=== PATIENT | male | born 1960 | race Caucasian/White ===

== ENCOUNTER 2017-01-05 14:27 | Emergency (ER) | payer OTHER ==
[~2017-01-05] VITALS: Ht 185.4 cm; Wt 97.0 kg
[~2017-01-05 14:27] MED LIST: ALBU8I INH; AMIT10 PO; BUSP5 PO; CIPR500T4 PO; GABA600T PO; HYDR-3533 PO; HYDR12.56 PO; LISI-363 PO; METR-1 PO; ZOFR4TAB3 SL
[2017-01-05 14:39] VITALS: BP 145/105; PULSE 87; RESP 15; TEMP 98.5; O2SAT 98
[2017-01-05] MEDS ORDERED: HYDR12.57 PO (15:22)
[2017-01-05] MEDS ORDERED: LISI-515 PO (15:22)
[2017-01-05] MEDS ORDERED: VITA100064 PO (15:33)
[2017-01-05] MEDS ORDERED: ASPI81CH CHEW (15:33)
--- NOTE | 2017-01-05 15:54 | PD ---
HPI Chief Complaint: GI Complaint Time Seen by Provider: 15:50 Travel History International Travel<30 days: No Contact w/Intl Traveler<30days: No Traveled to known affect area: No History of Present Illness HPI 56-year-old male with history of hypertension, fibromyalgia, chronic neck and back pains for which he states he takes cannabis oil, presents to the ER today because he states that he is having constipation for the last month. He has had nausea but no vomiting, or abdominal pain. He states that he has had difficulty making hard stools and today tried to make a bowel movement but feels like there is a ball stuck in his bottom. He denies any fevers or any other issues. He states that 2 days ago when he was making a bowel movement he may have one something on the anal area, has pain in that area. He rates the pain a 4 out of 10 which worsens when he tries to make a bowel movement. Modifying Factors: None Associated Signs & Symptoms: Constipation Risk Factors: None PFSH Past Medical History Cardiovascular Problems: Yes (SMALL VESSEL DISEASE ) Diminished Hearing: No Fibromyalgia: Yes Hypertension: Yes Immunizations Current: Yes Influenza Vaccination: No ?: Not Past Surgical History Abdominal Surgery: Yes (HERNIA REPAIR) Social History Alcohol Use: No (quit 8 yrs ago) Tobacco Use: No (never) Substance Use: No Allergies-Medications (Allergen,Severity, Reaction): Coded Allergies: No Known Allergies (Unverified , 01/05/17) Reported Meds & Prescriptions Reported Meds & Active Scripts Active Fleet Enema Rectal (Sodium Phosphates Rectal) 7-19 Gm/118 Ml Enem 118 Ml RECTAL DAILY PRN Golytely 236 gm (Polyethylene Glycol/Electrolytes) 4,000 Ml Soln 2,000 Ml PO ONCE Reported Aspirin 81 Mg Chew 81 Mg CHEW DAILY Vitamin D (Cholecalciferol) 1,000 Unit Tab 1,000 Units PO DAILY Hydrochlorothiazide 12.5 Mg Cap 12.5 Mg PO DAILY Lisinopril 20 Mg Tab 20 Mg PO DAILY Review of Systems Except as stated in HPI: all other systems reviewed are Neg Physical Exam Narrative GENERAL: Middle age white male who is well-appearing, well-developed, not acute distress, awake and oriented 3. SKIN: Warm and dry. HEAD: Atraumatic. Normocephalic. EYES: Pupils equal and round. No scleral icterus. No injection or drainage. ENT: No nasal bleeding or discharge. Mucous membranes pink and moist. NECK: Trachea midline. No JVD. CARDIOVASCULAR: Regular rate and rhythm. No murmur appreciated. RESPIRATORY: No accessory muscle use. Clear to auscultation. Breath sounds equal bilaterally. GASTROINTESTINAL: Abdomen soft, non-tender, nondistended. Hepatic and splenic margins not palpable. RECTAL EXAM: No masses, but a large stool bolus was noted in the rectum with area tenderness to the 6 o'clock position on the anus, small anal tear, with small amount blood, stool is brown. MUSCULOSKELETAL: No obvious deformities. No clubbing. No cyanosis. No edema. NEUROLOGICAL: Awake and alert. No obvious cranial nerve deficits. Motor grossly within normal limits. Normal speech. PSYCHIATRIC: Appropriate mood and affect; insight and judgment normal. Data Data Last Documented VS Vital Signs Date Time Temp Pulse Resp B/P Pulse Ox O2 Delivery O2 Flow Rate FiO2 01/05/17 14:39 98.5 87 15 145/105 98 Orders Abdomen, Flat & Upright (01/05/17 15:09) MDM Medical Decision Making Medical Screen Exam Complete: Yes Emergency Medical Condition: Yes Medical Record Reviewed: Yes Differential Diagnosis Constipation versus obstruction versus mass Narrative Course Manual digital decompression was done in the ER. Exam and x-ray did not show any signs of acute obstruction. Patient last had a bowel movement 2 days ago. At this point, my plan would be to give him constipation treatment with GoLYTELY and Fleet's enema. Follow-up with primary care physician. Return for any worsening in symptoms as necessary. Sitz baths. Return for any worsening in symptoms as necessary. The plan has been discussed with him and he states understanding. Procedures Procedure Narrative Rectal decompression: Patient is placed in a supine position, knees bent, and digital decompression was done with surgical lube, stool bolus broken up and removed, patient states he is feeling improved. Patient tolerated procedure well. Diagnosis Primary Impression: CONSTIPATION, UNSPECIFIED Additional Impressions: Impacted stool in rectum Tear of anal skin Med/Other Pt SpecificInfo: Prescription(s) given Scripts Sodium Phosphates Rectal (Fleet Enema Rectal)7-19 Gm/118 Ml [id number] Ml RECTAL DAILY PRN (CONSTIPATION) #1 BOTTLE Ref 0 Prov:Twan Ly MD 01/05/17 Peg-Electrolytes (Golytely 236 gm)4,000 Ml Soln2,000 Ml PO ONCE #1 CONTAINER Ref 0 Prov:Twan Ly MD 01/05/17 Disposition: 01 DISCHARGE HOME Condition: Stable Twan Ly MD Jan 05, 2017 15:54
[2017-01-05] MEDS ORDERED: COLY4000S PO (17:12)
[2017-01-05] MEDS ORDERED: FLEEENE3 RECTAL (17:12)
--- NOTE | 2017-01-05 17:16 | RADHPO ---
EXAM DATE/TIME: 01/05/2017 15:56 [facility] COMPARISON: No previous studies available for comparison. INDICATIONS : Abdomen pain, constipation MEDICAL HISTORY : None. SURGICAL HISTORY : None. ENCOUNTER: Initial ACUITY: 1 day PAIN SCORE: 6/10 LOCATION: Bilateral abdomen FINDINGS: Mild diffuse distention of small and large bowel. Moderate stool seen in the rectum and sigmoid colon . No perceptible abrupt caliber changes. No organomegaly or evidence of free air. CONCLUSION: Features most typical of a mild, generalized ileus. Moderate stool in the distal colon. Jaylan Macedo MD on January 05, 2017 at 17:14 Board Certified Radiologist. This report was verified electronically.
== END 2017-01-05 17:36 | disposition home or self-care (01) ==
LOC: PHED 14:27
DX: K59.00 Constipation, unspecified (principal); I10 Essential (primary) hypertension; M79.7 Fibromyalgia
CPT/HCPCS: 74020; 99283

== ENCOUNTER 2017-11-13 19:09 | Observation (INO) | payer OTHER ==
[~2017-11-13] VITALS: Ht 185.4 cm; Wt 93.2 kg
[~2017-11-13 19:09] MED LIST changes: -ALBU8I INH; -AMIT10 PO; +ASPI-516 CHEW; -BUSP5 PO; -CIPR500T4 PO; +COLY4000S PO; +FLEEENE3 RECTAL; -GABA600T PO; -HYDR-3533 PO; -HYDR12.56 PO; +HYDR12.57 PO; -LISI-363 PO; +LISI-515 PO; -METR-1 PO; +VITA100064 PO; -ZOFR4TAB3 SL
[2017-11-13 19:26] VITALS: BP 181/112; PULSE 102; RESP 16; TEMP 98; O2SAT 98
[2017-11-13 20:12] VITALS: BP 150/100; PULSE 82; RESP 18; O2SAT 97
[2017-11-13] MEDS ORDERED: SODIUM CHLORIDE 0.9% FLUSH 10 ML FLUSH IVF PRN (20:45)
[2017-11-13 21:00] VITALS: BP 184/107; PULSE 89; RESP 18; O2SAT 96
--- NOTE | 2017-11-13 21:09 | RADRPT ---
EXAM DATE/TIME: 11/13/2017 20:45 [facility] COMPARISON: CHEST SINGLE AP, May 01, 2016, 0:47. INDICATIONS : Chest pain MEDICAL HISTORY : Hypertension. Cardiac disorders, fibromyalgia SURGICAL HISTORY : Abdomen surgery ENCOUNTER: Initial ACUITY: 2 months PAIN SCORE: 2/10 LOCATION: Bilateral chest FINDINGS: A single view of the chest demonstrates the lungs to be symmetrically aerated without evidence of mas s, infiltrate or effusion. The cardiomediastinal contours are unremarkable. Osseous structures are intact. CONCLUSION: No acute disease. Ernst Dubose Jr., MD on November 13, 2017 at 21:07 Board Certified Radiologist. This report was verified electronically.
--- NOTE | 2017-11-13 21:35 | PD ---
HPI Chief Complaint: Anxiety Time Seen by Provider: 20:28 Travel History International Travel<30 days: No Contact w/Intl Traveler<30days: No Traveled to known affect area: No History of Present Illness HPI Patient is a 56-year-old male presenting to emergency for evaluation of chest pain and anxiety. Patient states that for the last week he is experienced anxiety which is worse at night. He went to the [facility] today to have this and his asthma evaluated, he was prescribed Xanax, prednisone. Patient has medications filled, he took the steroids this evening. He has not taken any Xanax yet. Approximately 30 minutes prior to arrival he experienced a pinching sensation in the base of his neck, he states it felt as if it was swelling. He then began to feel shaky, sweaty, nauseated and developed a left anterior chest wall pain that radiated to his left arm. He reports that the pain is a 5-6 out of 10 , it is not alleviated by anything, it started suddenly and it has no aggravating factors. Patient states that for the last week he has wheezing at night, he has been using Himalayan Sea salts and will occasionally use has albuterol inhaler. Patient denies any fever, chills, headache, abdominal pain, vomiting, nasal congestion. He states that his friend came over at 3 PM this afternoon and gave him a piece of edible marijuana to help with his anxiety. He stated that he smelled it and he did not believe it was laced with anything else. He denies any other illicit drug use, tobacco use or alcohol use. He denies any psychiatric history. He further denies any recent life stressors to be causing him anxiety. [facility] Past Medical History Cardiovascular Problems: Yes (SMALL VESSEL DISEASE ) Fibromyalgia: Yes Hypertension: Yes Neurologic: Yes (neuropathy) Immunizations Current: Yes Past Surgical History Abdominal Surgery: Yes (HERNIA REPAIR) Social History Alcohol Use: No (quit 8 yrs ago) Tobacco Use: No (never) Substance Use: No Allergies-Medications (Allergen,Severity, Reaction): Coded Allergies: No Known Allergies (Unverified Adverse Reaction, Unknown, 11/13/17) Reported Meds & Prescriptions Reported Meds & Active Scripts Active Reported Aspirin 81 Mg Chew 81 Mg CHEW DAILY Vitamin D3 (Cholecalciferol) 1,000 Unit Tab 1,000 Units PO DAILY Hydrochlorothiazide 12.5 Mg Cap 12.5 Mg PO DAILY Lisinopril 20 Mg Tab 20 Mg PO DAILY Review of Systems Except as stated in HPI: all other systems reviewed are Neg General / Constitutional: No: Fever, Chills Eyes: No: Blurred Vision HENT: No: Headaches, Lightheadedness, Sore Throat, Congestion Cardiovascular: Positive: Chest Pain or Discomfort, Tachycardia, Diaphoresis Respiratory: Positive: Wheezing, No: Cough, Shortness of Breath, Pleuritic Pain Gastrointestinal: Positive: Nausea, No: Vomiting, Abdominal Pain Neurologic: Positive: Tremor, No: Focal Abnormalities, Change in Mentation Physical Exam Narrative GENERAL: Well-developed, well-nourished, well-appearing male. Resting comfortably in no acute distress. SKIN: Warm and dry. HEAD: Atraumatic. Normocephalic. EYES: Pupils equal and round. No scleral icterus. No injection or drainage. ENT: No nasal bleeding or discharge. Mucous membranes pink and moist. NECK: Trachea midline. No JVD. CARDIOVASCULAR: Regular rate and rhythm. RESPIRATORY: No accessory muscle use. Clear to auscultation. Breath sounds equal bilaterally. GASTROINTESTINAL: Abdomen soft, non-tender, nondistended. Hepatic and splenic margins not palpable. MUSCULOSKELETAL: Extremities without clubbing, cyanosis, or edema. No obvious deformities. NEUROLOGICAL: Awake and alert. No obvious cranial nerve deficits. Motor grossly within normal limits. Five out of 5 muscle strength in the arms and legs. Normal speech. PSYCHIATRIC: Appropriate mood and affect; insight and judgment normal. Data Data Last Documented VS Vital Signs Date Time Temp Pulse Resp B/P (MAP) Pulse Ox O2 Delivery O2 Flow Rate FiO2 11/13/17 21:00 89 18 184/107 (132) 96 Nasal Cannula 2.00 11/13/17 19:26 98.0 Orders Orders Electrocardiogram (11/13/17 20:42) Ckmb (Isoenzyme) Profile (11/13/17 20:42) Complete Blood Count With Diff (11/13/17 20:42) Comprehensive Metabolic Panel (11/13/17 20:42) Magnesium (Mg) (11/13/17 20:42) Prothrombin Time / Inr (Pt) (11/13/17 20:42) Act Partial Throm Time (Ptt) (11/13/17 20:42) Troponin I (11/13/17 20:42) Lipase (11/13/17 20:42) Chest, Single Ap (11/13/17 20:42) Ecg Monitoring (11/13/17 20:42) Bilateral Bp Monitoring (11/13/17 20:42) Iv Access Insert/Monitor (11/13/17 20:42) Oximetry (11/13/17 20:42) Oxygen Administration (11/13/17 20:42) Sodium Chloride 0.9% Flush (Ns Flush) (11/13/17 20:45) Thyroid Stimulating Hormone (11/13/17 20:42) CKMB (11/13/17 21:00) CKMB% (11/13/17 21:00) Admit Order (Ed Use Only) (11/13/17 23:01) Activity Bed Rest With Brp (11/13/17 23:01) Vital Signs (Adult) Q4H (11/13/17 23:01) Cardiac Rhythm .As Directed (11/13/17 23:) Notify Dr: Other .PRN (11/13/17 23:01) Notify Parameters (11/13/17 23:01) Resp Oxygen Nasal Cannula (11/13/17 ) Diet Npo (11/14/17 Breakfast) Ckmb (Isoenzyme) Profile (11/13/17 23:01) Ckmb (Isoenzyme) Profile (11/14/17 02:01) Troponin I (11/13/17 23:01) Troponin I (11/14/17 02:01) Electrocardiogram (11/13/17 23:01) Electrocardiogram (11/14/17 02:01) ^ Obtain (11/13/17 23:01) Sodium Chloride 0.9% Flush (Ns Flush) (11/13/17 23:15) Sodium Chloride 0.9% Flush (Ns Flush) (11/14/17 09:00) Acetaminophen (Tylenol) (11/13/17 23:15) Morphine Inj (Morphine Inj) (11/13/17 23:15) Ondansetron Inj (Zofran Inj) (11/13/17 23:15) Nitroglycerin Sl (Nitrostat Sl) (11/13/17 23:15) Alprazolam (Xanax) (11/13/17 23:15) Bid Writer / Telemetry LIZETTE.Q8H (11/13/17 23:01) CKMB (11/13/17 23:45) CKMB% (11/13/17 23:45) CKMB (11/14/17 02:15) CKMB% (11/14/17 02:15) Labs Laboratory Tests Test 11/13/17 21:00 White Blood Count 11.1 TH/MM3 Red Blood Count 5.13 MIL/MM3 Hemoglobin 16.2 GM/DL Hematocrit 46.8 % Mean Corpuscular Volume 91.3 FL Mean Corpuscular Hemoglobin 31.5 PG Mean Corpuscular Hemoglobin Concent 34.5 % Red Cell Distribution Width 13.1 % Platelet Count 214 TH/MM3 Mean Platelet Volume 10.4 FL Neutrophils (%) (Auto) 85.3 % Lymphocytes (%) (Auto) 11.1 % Monocytes (%) (Auto) 3.1 % Eosinophils (%) (Auto) 0.2 % Basophils (%) (Auto) 0.3 % Neutrophils # (Auto) 9.5 TH/MM3 Lymphocytes # (Auto) 1.2 TH/MM3 Monocytes # (Auto) 0.3 TH/MM3 Eosinophils # (Auto) 0.0 TH/MM3 Basophils # (Auto) 0.0 TH/MM3 CBC Comment DIFF FINAL Differential Comment Prothrombin Time 10.0 SEC Prothromb Time International Ratio 1.0 RATIO Activated Partial Thromboplast Time 21.2 SEC Blood Urea Nitrogen 27 MG/DL Creatinine 1.33 MG/DL Random Glucose 123 MG/DL Total Protein 8.1 GM/DL Albumin 4.8 GM/DL Calcium Level 9.4 MG/DL Magnesium Level 2.2 MG/DL Alkaline Phosphatase 68 U/L Aspartate Amino Transf (AST/SGOT) 34 U/L Alanine Aminotransferase (ALT/SGPT) 66 U/L Total Bilirubin 0.5 MG/DL Sodium Level 135 MEQ/L Potassium Level 3.7 MEQ/L Chloride Level 102 MEQ/L Carbon Dioxide Level 21.2 MEQ/L Anion Gap 12 MEQ/L Estimat Glomerular Filtration Rate 56 ML/MIN Total Creatine Kinase 314 U/L Creatine Kinase MB 2.5 NG/ML Creatine Kinase MB % 0.8 % Troponin I LESS THAN 0.02 NG/ML Lipase 422 U/L Thyroid Stimulating Hormone 3rd Gen 1.540 uIU/ML MDM Medical Decision Making Medical Screen Exam Complete: Yes Emergency Medical Condition: Yes Interpretation(s) Laboratory Tests Test 11/13/17 21:00 White Blood Count 11.1 TH/MM3 Red Blood Count 5.13 MIL/MM3 Hemoglobin 16.2 GM/DL Hematocrit 46.8 % Mean Corpuscular Volume 91.3 FL Mean Corpuscular Hemoglobin 31.5 PG Mean Corpuscular Hemoglobin Concent 34.5 % Red Cell Distribution Width 13.1 % Platelet Count 214 TH/MM3 Mean Platelet Volume 10.4 FL Neutrophils (%) (Auto) 85.3 % Lymphocytes (%) (Auto) 11.1 % Monocytes (%) (Auto) 3.1 % Eosinophils (%) (Auto) 0.2 % Basophils (%) (Auto) 0.3 % Neutrophils # (Auto) 9.5 TH/MM3 Lymphocytes # (Auto) 1.2 TH/MM3 Monocytes # (Auto) 0.3 TH/MM3 Eosinophils # (Auto) 0.0 TH/MM3 Basophils # (Auto) 0.0 TH/MM3 CBC Comment DIFF FINAL Differential Comment Prothrombin Time 10.0 SEC Prothromb Time International Ratio 1.0 RATIO Activated Partial Thromboplast Time 21.2 SEC Blood Urea Nitrogen 27 MG/DL Creatinine 1.33 MG/DL Random Glucose 123 MG/DL Total Protein 8.1 GM/DL Albumin 4.8 GM/DL Calcium Level 9.4 MG/DL Magnesium Level 2.2 MG/DL Alkaline Phosphatase 68 U/L Aspartate Amino Transf (AST/SGOT) 34 U/L Alanine Aminotransferase (ALT/SGPT) 66 U/L Total Bilirubin 0.5 MG/DL Sodium Level 135 MEQ/L Potassium Level 3.7 MEQ/L Chloride Level 102 MEQ/L Carbon Dioxide Level 21.2 MEQ/L Anion Gap 12 MEQ/L Estimat Glomerular Filtration Rate 56 ML/MIN Total Creatine Kinase 314 U/L Creatine Kinase MB 2.5 NG/ML Creatine Kinase MB % 0.8 % Troponin I LESS THAN 0.02 NG/ML Lipase 422 U/L Thyroid Stimulating Hormone 3rd Gen 1.540 uIU/ML Last Impressions Chest X-Ray 11/13/172041 Signed Impressions: Service Date/Time: October 20:45 - CONCLUSION: No acute disease. Ernst Dubose Jr., MD Vital Signs Date Time Temp Pulse Resp B/P (MAP) Pulse Ox O2 Delivery O2 Flow Rate FiO2 11/13/17 20:50 Nasal Cannula 2.00 11/13/17 20:12 82 18 150/100 (117) 97 Room Air 11/13/17 19:26 98.0 102 16 181/112 (135) 98 Differential Diagnosis Anxiety versus ACS versus [place] vs NSTEMI vs metabolic abnormality vs other Narrative Course Patient is 56-year-old male presenting to the emergency for evaluation of chest pain and anxiety. [facility] He was prescribed Xanax which she did not take. He has no Stressors and denies any suicidality or depression. Labs and imaging ordered and pending. IV access established, patient placed on telemetry monitoring continuous pulse oximetry. Initial EKG shows sinus rhythm with a ventricular rate of 98. CBC with no acute findings, chemistry with a slightly elevated BUN/creatinine 27 /1.33, CK 314, lipase 422, TSH 1.54 Chest x-ray which was read by the radiologist shows no acute disease. Patient has been resting comfortably, but this time he was bedded in the emergency department he was pain free. Due to patient's history of hypertension as well as family history of heart disease he will be place chest pain center for further evaluation. Thus plan with my attending physician as well as patient. Patient is agreeable to stay. Admit orders place. Diagnosis Primary Impression: Chest pain Qualified Codes: R07.9 - Chest pain, unspecified Admitting Information Admitting Physician Requests: Observation Condition: Stable Joanne Chacon Nov 13, 2017 21:35
[2017-11-13 21:56] LABS: AUTOMATED NEUTROPHIL # 9.5 TH/MM3 (1.8-7.7); BASOPHIL % 0.3 % (0.0-2.0); EOSINOPHIL % 0.2 % (0.0-4.0); HEMATOCRIT 46.8 % (39.0-51.0); HEMOGLOBIN 16.2 GM/DL (13.0-17.0); LYMPH % 11.1 % (9.0-44.0); LYMPHOCYTE # 1.2 TH/MM3 (1.0-4.8); MEAN CELL VOLUME 91.3 FL (80.0-100.0); MEAN CORPUSCULAR HEMOGLOBIN 31.5 PG (27.0-34.0); MEAN CORPUSCULAR HGB CONC 34.5 % (32.0-36.0); MEAN PLATELET VOLUME 10.4 FL (7.0-11.0); MONO % 3.1 % (0.0-8.0); MONOCYTE # 0.3 TH/MM3 (0-0.9); NEUT % 85.3 % (16.0-70.0); PLATELET COUNT 214 TH/MM3 (150-450); RED BLOOD COUNT 5.13 MIL/MM3 (4.50-5.90); RED CELL DISTRIBUTION WIDTH 13.1 % (11.6-17.2); WHITE BLOOD COUNT 11.1 TH/MM3 (4.0-11.0)
[2017-11-13 22:03] LABS: ALBUMIN 4.8 GM/DL (3.4-5.0); ALT (GPT) 66 U/L (12-78); AST (GOT) 34 U/L (15-37); BICARBONATE 21.2 MEQ/L (21.0-32.0); BLOOD UREA NITROGEN 27 MG/DL (7-18); CALCIUM 9.4 MG/DL (8.5-10.1); CHLORIDE 102 MEQ/L (98-107); CREATININE 1.33 MG/DL (0.60-1.30); GLOMERULAR FILTRATION RATE 56 ML/MIN (>89); GLUCOSE,RANDOM 123 MG/DL (74-106); LIPASE 422 U/L (73-393); MAGNESIUM 2.2 MG/DL (1.5-2.5); SODIUM (NA) 135 MEQ/L (136-145)
[2017-11-13 22:13] LABS: ALKALINE PHOSPHATASE 68 U/L (45-117); TOTAL BILIRUBIN ADULT 0.5 MG/DL (0.2-1.0); TOTAL PROTEIN 8.1 GM/DL (6.4-8.2); TROPONIN I LESS THAN 0.02 NG/ML (0.02-0.05)
[2017-11-13] MEDS ORDERED: ALPRAZolam 0.25 MG TAB PO PRN (23:15)
[2017-11-13] MEDS ORDERED: NITROGLYCERIN 0.4 MG SL 25 TABS/BTL SL PRN (23:15)
[2017-11-13] MEDS ORDERED: SODIUM CHLORIDE 0.9% FLUSH 10 ML FLUSH IV FLUSH PRN (23:15)
[2017-11-13] MEDS ORDERED: ACETAMINOPHEN 500 MG CPLT PO PRN (23:15)
[2017-11-13] MEDS ORDERED: ONDANSETRON HCL 4 MG/2 ML VIAL IV PUSH PRN (23:15)
[2017-11-13] MEDS ORDERED: MORPHINE SULFATE 4 MG/ML INJ IV PUSH PRN (23:15)
[2017-11-14] VITALS (7 sets, daily range): BP systolic 124–164; BP diastolic 86–103; PULSE 65–98; RESP 16–22; TEMP 97.7–98.6; O2SAT 96–100
[2017-11-14] MEDS ORDERED: diphenhydrAMINE HCL 25 MG CAP PO ONE (00:15)
[2017-11-14 00:44] LABS: TROPONIN I LESS THAN 0.02 NG/ML (0.02-0.05)
[2017-11-14] MEDS ORDERED: CYCL5TAB PO (00:46)
[2017-11-14 03:01] LABS: TROPONIN I LESS THAN 0.02 NG/ML (0.02-0.05)
[2017-11-14] MEDS ORDERED: SODIUM CHLORIDE 0.9% FLUSH 10 ML FLUSH IV FLUSH SCH (09:00)
--- NOTE | 2017-11-14 11:52 | EKG ---
Date Performed: 11/14/2017 Time Performed: 02:15:04 PTAGE: 56 years EKG: Sinus rhythm NORMAL ECG PREVIOUS TRACING : 11/14/2017 00.03 DOCTOR: Maxi Davis Interpretating Date/Time 11/14/2017 11:52:05
--- NOTE | 2017-11-14 11:53 | EKG ---
Date Performed: 11/14/2017 Time Performed: 00:03:48 PTAGE: 56 years EKG: Sinus rhythm NORMAL ECG NO CHANGE PREVIOUS TRACING : 11/13/2017 20.56 DOCTOR: Maxi Davis Interpretating Date/Time 11/14/2017 11:53:13
--- NOTE | 2017-11-14 11:56 | HHI.HP ---
HPI Primary Care Physician [facility] Chief Complaint Chest pain History of Present Illness This is a 56-year-old male with history of hypertension and anxiety that presents to ED to be evaluated for anxiety and chest pain. States that for the last 2 weeks he has been awoken in the middle of night with asthma and anxiety. He went to the [facility] yesterday for this and was prescribed prednisone and Xanax. He took a prednisone about 1:00 yesterday afternoon and then around 6: 00 yesterday evening while watching television he developed a pinching sensation in the lower anterior neck that lasted a split-second. But to him the area looks like it may been a little swollen. They became concerned and he started to Google the medication and found that it may be related to prednisone. It stated that they can also cause his blood pressure to elevate. So then checked his blood pressure and it was 180/101. That made him more anxious. His decided to call 911. When and blunts arrived a sudden onset left-sided sharp pain radiating from left lateral chest to the center of his chest lasting a split-second and has not recurred. Patient then states "I think I'm just very anxious." He then states that he has had extensive cardiac workup and has been told that his heart is clear. States he had a cardiac catheterization about 15 years ago and that it was perfectly normal. He had a treadmill stress test about 8 years ago that he states was normal. Had a chemical stress test 2 years ago through the [facility] that he states is normal. He had a full physical with CVA 8 months ago including EKG and labs and states everything was okay. Lipid panel was perfectly normal. Offers no complaints at this time. Review of Systems General: Patient denies fevers, chills recent, and recent travel HEENT: Patient denies headache, sore throat, difficulty swallowing. Cardiovascular: Has the chest discomfort as mentioned above. Denies sensation of heart beating rapidly or irregularly. No syncope. Denies diaphoresis. Respiratory: Denies shortness of breath or inspirational chest discomfort. Denies coughing wheezing or hemoptysis. GI: Patient denies nausea, vomiting, diarrhea, abdominal pain, bloody stools. Musculoskeletal: Patient denies joint pain or edema. Denies calf pain or edema. Neurovascular: Patient denies numbness, tingling, weakness in extremities. Denies headache. Endocrine: Denies polyuria and polydipsia. Hematologic: Denies easy bruising. Skin: Denies rash or itching. Past Family Social History Allergies: Coded Allergies: No Known Allergies (Unverified Allergy, Unknown, 11/14/17) Past Medical History Hypertension and asthma. Recently anxiety. Denies hyperlipidemia diabetes or CAD. Has chronic neck and back pain. Past Surgical History Hernia repair. Reported Medications Reported Meds & Active Scripts Active Reported Flexeril (Cyclobenzaprine HCl) 5 Mg Tab 5 Mg PO TID PRN Aspirin 81 Mg Chew 81 Mg CHEW DAILY Vitamin D3 (Cholecalciferol) 1,000 Unit Tab 1,000 Units PO DAILY Hydrochlorothiazide 12.5 Mg Cap 12.5 Mg PO DAILY Lisinopril 20 Mg Tab 20 Mg PO DAILY Active Ordered Medications Current Medications Medications (Trade) Dose Ordered Sig/Yunier Route Start Time Stop Time Status Last Admin (NS Flush) 2 ml UNSCH PRN IVF 11/13/17 20:45 (NS Flush) 2 ml UNSCH PRN IV FLUSH 11/13/17 23:15 (NS Flush) 2 ml BID IV FLUSH 11/14/17 09:00 11/14/17 07:47 (Tylenol) 500 mg Q4H PRN PO 11/13/17 23:15 (Morphine Inj) 2 mg Q4H PRN IV PUSH 11/13/17 23:15 (Zofran Inj) 4 mg Q6H PRN IV PUSH 11/13/17 23:15 (Nitrostat Sl) 0.4 mg Q5M PRN SL 11/13/17 23:15 (Xanax) 0.25 mg Q8H PRN PO 11/13/17 23:15 11/14/17 07:45 Family History His half brother has CAD. His father had an IN in his late 60s. Social History Lifetime nonsmoker. Denies alcohol. He smokes marijuana help with his chronic neck and back pain. He is . Physical Exam Vital Signs Vital Signs Date Time Temp Pulse Resp B/P (MAP) Pulse Ox O2 Delivery O2 Flow Rate FiO2 11/14/17 10:22 100 Nasal Cannula 2.00 11/14/17 08:45 98.3 74 22 164/90 (114) 100 11/14/17 06:21 99 Nasal Cannula 2.00 11/14/17 04:25 98.1 65 16 124/86 (99) 99 11/14/17 00:47 97.7 69 16 152/94 (113) 96 11/14/17 00:47 73 11/14/17 00:00 98.2 74 16 159/96 (117) Nasal Cannula 2.00 11/13/17 21:00 89 18 184/107 (132) 96 Nasal Cannula 2.00 11/13/17 20:50 Nasal Cannula 2.00 11/13/17 20:12 82 18 150/100 (117) 97 Room Air 11/13/17 19:26 98.0 102 16 181/112 (135) 98 Physical Exam GENERAL: This is a well-nourished, well-developed patient, in no apparent distress. Patient speaks in clear complete sentences. Patient is pleasant. HEENT: Head is atraumatic and normocephalic. Neck is supple without lymphadenopathy and trachea is midline. No JVD or carotid bruits. CARDIOVASCULAR: Regular rate and rhythm without murmurs, gallops, or rubs. RESPIRATORY: Clear to auscultation. Breath sounds equal bilaterally. No wheezes , rales, or rhonchi. Left lateral chest wall is a little tender in one intercostals reproducing the discomfort last night and he also states a similar discomfort that he had when he was diagnosed with costochondritis about 8 years ago. No use of accessory muscles. GASTROINTESTINAL: Abdomen is nontender, nondistended. Abdomen soft. No obvious pulsatile mass or bruit. No CVA tenderness. Strong femoral pulses bilaterally. Normal bowel sounds in all quadrants. MUSCULOSKELETAL: Patient is moving upper and lower extremities freely. No calf tenderness or edema, no Homans sign. Strong pulses in upper and lower extremities. NEUROLOGICAL: Patient is alert and oriented. Cranial nerves 2-12 are grossly intact. No focal deficits and speech is clear. SKIN: No rash and turgor is normal. Laboratory Laboratory Tests Test 11/13/17 21:00 11/13/17 23:45 11/14/17 02:15 White Blood Count 11.1 Red Blood Count 5.13 Hemoglobin 16.2 Hematocrit 46.8 Mean Corpuscular Volume 91.3 Mean Corpuscular Hemoglobin 31.5 Mean Corpuscular Hemoglobin Concent 34.5 Red Cell Distribution Width 13.1 Platelet Count 214 Mean Platelet Volume 10.4 Neutrophils (%) (Auto) 85.3 Lymphocytes (%) (Auto) 11.1 Monocytes (%) (Auto) 3.1 Eosinophils (%) (Auto) 0.2 Basophils (%) (Auto) 0.3 Neutrophils # (Auto) 9.5 Lymphocytes # (Auto) 1.2 Monocytes # (Auto) 0.3 Eosinophils # (Auto) 0.0 Basophils # (Auto) 0.0 CBC Comment DIFF FINAL Differential Comment Prothrombin Time 10.0 Prothromb Time International Ratio 1.0 Activated Partial Thromboplast Time 21.2 Blood Urea Nitrogen 27 Creatinine 1.33 Random Glucose 123 Total Protein 8.1 Albumin 4.8 Calcium Level 9.4 Magnesium Level 2.2 Alkaline Phosphatase 68 Aspartate Amino Transf (AST/SGOT) 34 Alanine Aminotransferase (ALT/SGPT) 66 Total Bilirubin 0.5 Sodium Level 135 Potassium Level 3.7 Chloride Level 102 Carbon Dioxide Level 21.2 Anion Gap 12 Estimat Glomerular Filtration Rate 56 Total Creatine Kinase 314 277 301 Creatine Kinase MB 2.5 2.3 2.2 Creatine Kinase MB % 0.8 Troponin I LESS THAN 0.02 LESS THAN 0.02 LESS THAN 0.02 Lipase 422 Thyroid Stimulating Hormone 3rd Gen 1.540 Result Diagram: 11/13/17 2100 11/13/172099 Imaging Last 48 hours Impressions Chest X-Ray 11/13/172041 Signed Impressions: Service Date/Time: October 20:45 - CONCLUSION: No acute disease. MD Cassie Milner Jr. VTE Risk Assessment Cassie VTE Risk Assessment: No/Low Risk (score <= 1) Caprini Risk Assessment Model Point Value = 1 Point Value = 2 Point Value = 3 Point Value = 5 Age 41-60 Minor surgery BMI > 25 kg/m2 Swollen legs Varicose veins or History of unexplained or recurrent spontaneous Oral contraceptives or hormone replacement Sepsis (< 1 month) Serious lung disease, including pneumonia (< 1 month) Abnormal pulmonary function Acute myocardial infarction Congestive heart failure (< 1 month) History of inflammatory bowel disease Medical patient at bed rest Age 61-74 Arthroscopic surgery Major open surgery (> 45 min) Laparoscopic surgery (> 45 min) Malignancy Confined to bed (> 72 hours) Immobilizing plaster cast Central venous access Age >= 75 History of VTE Family history of VTE Factor V Leiden Prothrombin [id number] Lupus anticoagulant Anticardiolipin antibodies Elevated serum homocysteine Heparin-induced thrombocytopenia Other congenital or acquired thrombophilia Stroke (< 1 month) Elective arthroplasty Hip, pelvis, or leg fracture Acute spinal cord injury (< 1 month) Prophylaxis Regimen Total Risk Factor Score Risk Level Prophylaxis Regimen 0-1 Low Early ambulation 2 Moderate Order ONE of the following: *Sequential Compression Device (SCD) *Heparin 5000 units SQ BID 3-4 Higher Order ONE of the following medications: *Heparin 5000 units SQ TID *Enoxaparin/Lovenox 40 mg SQ daily (WT < 150 kg, CrCl > 30 mL/min) *Enoxaparin/Lovenox 30 mg SQ daily (WT < 150 kg, CrCl > 10-29 mL/min) *Enoxaparin/Lovenox 30 mg SQ BID (WT < 150 kg, CrCl > 30 mL/min) AND/OR *Sequential Compression Device (SCD) 5 or more Highest Order ONE of the following medications: *Heparin 5000 units SQ TID (Preferred with Epidurals) *Enoxaparin/Lovenox 40 mg SQ daily (WT < 150 kg, CrCl > 30 mL/min) *Enoxaparin/Lovenox 30 mg SQ daily (WT < 150 kg, CrCl > 10-29 mL/min) *Enoxaparin/Lovenox 30 mg SQ BID (WT < 150 kg, CrCl > 30 mL/min) AND *Sequential Compression Device (SCD) Assessment and Plan Assessment and Plan * Atypical chest pain: Patient has had serial crit enzymes for ruling out purposes. He will be seen by Dr. Davsi of cardiology and the chest pain center and likely be discharged home after his evaluation. [facility] Return to ED for interval issues. * Hypertension: Continue current medication. * Anxiety: Continue his meds [facility] the [facility]. [facility] Patient stable at this time. He is agreeable to this plan. Mike Johnson Nov 14, 2017 11:56
--- NOTE | 2017-11-14 11:58 | EKG ---
Date Performed: 11/13/2017 Time Performed: 20:56:06 PTAGE: 56 years EKG: Sinus rhythm NORMAL ECG NO PREVIOUS TRACING DOCTOR: Maxi Davis Interpretating Date/Time 11/14/2017 11:57:27
[2017-11-14] MEDS ORDERED: LISI10TA3 PO (12:06)
--- NOTE | 2017-11-14 12:29 | HHI.DCPOC ---
Discharge Care Plan Diagnosis: (1) Chest pain (2) Hypertension (3) Anxiety (4) Asthma Goals to Promote Your Health * To prevent worsening of your condition and complications * To maintain your health at the optimal level Directions to Meet Your Goals Take your medications as prescribed Follow your dietary instruction Follow activity as directed Keep your appointments as scheduled Take your immunizations and boosters as scheduled If your symptoms worsen call your PCP, if no PCP go to Urgent Care Center or Emergency Room Smoking is Dangerous to Your Health. Avoid second hand smoke Call the 24-hour hour crisis hotline for domestic abuse at Mike Johnson Nov 14, 2017 12:29
--- NOTE | 2017-11-14 12:47 | PD.CARD.PN ---
Subjective Subjective Remarks Patient seen and examined and discussed with [facility] Significant component of anxiety and atypical chest pain. [facility] Anxiety relieved with xanax and felt much better since. Objective Medications Current Medications Medications (Trade) Dose Ordered Sig/Yunier Route Start Time Stop Time Status Last Admin (NS Flush) 2 ml UNSCH PRN IV FLUSH 11/13/17 23:15 (NS Flush) 2 ml BID IV FLUSH 11/14/17 09:00 11/14/17 07:47 (Tylenol) 500 mg Q4H PRN PO 11/13/17 23:15 (Morphine Inj) 2 mg Q4H PRN IV PUSH 11/13/17 23:15 (Zofran Inj) 4 mg Q6H PRN IV PUSH 11/13/17 23:15 (Nitrostat Sl) 0.4 mg Q5M PRN SL 11/13/17 23:15 (Xanax) 0.25 mg Q8H PRN PO 11/13/17 23:15 11/14/17 07:45 (Microzide) 12.5 mg DAILY PO 11/14/17 13:00 11/14/17 12:38 (Aspirin) 325 mg DAILY PO 11/14/17 13:00 11/14/17 12:38 (Prinivil) 10 mg DAILY PO 11/14/17 13:00 11/14/17 12:38 Vital Signs / I&O Vital Signs Date Time Temp Pulse Resp B/P (MAP) Pulse Ox O2 Delivery O2 Flow Rate FiO2 11/14/17 12:00 98.6 98 18 147/103 (118) 99 11/14/17 10:22 100 Nasal Cannula 2.00 11/14/17 08:45 98.3 74 22 164/90 (114) 100 11/14/17 06:21 99 Nasal Cannula 2.00 11/14/17 04:25 98.1 65 16 124/86 (99) 99 11/14/17 00:47 97.7 69 16 152/94 (113) 96 11/14/17 00:47 73 11/14/17 00:00 98.2 74 16 159/96 (117) Nasal Cannula 2.00 11/13/17 21:00 89 18 184/107 (132) 96 Nasal Cannula 2.00 11/13/17 20:50 Nasal Cannula 2.00 11/13/17 20:12 82 18 150/100 (117) 97 Room Air 11/13/17 19:26 98.0 102 16 181/112 (135) 98 Physical Exam Chest clear with no RWR CV RSR with no GRM Neck no masses nodes or bruits Laboratory Laboratory Tests Test 11/13/17 21:00 11/13/17 23:45 11/14/17 02:15 White Blood Count 11.1 TH/MM3 Red Blood Count 5.13 MIL/MM3 Hemoglobin 16.2 GM/DL Hematocrit 46.8 % Mean Corpuscular Volume 91.3 FL Mean Corpuscular Hemoglobin 31.5 PG Mean Corpuscular Hemoglobin Concent 34.5 % Red Cell Distribution Width 13.1 % Platelet Count 214 TH/MM3 Mean Platelet Volume 10.4 FL Neutrophils (%) (Auto) 85.3 % Lymphocytes (%) (Auto) 11.1 % Monocytes (%) (Auto) 3.1 % Eosinophils (%) (Auto) 0.2 % Basophils (%) (Auto) 0.3 % Neutrophils # (Auto) 9.5 TH/MM3 Lymphocytes # (Auto) 1.2 TH/MM3 Monocytes # (Auto) 0.3 TH/MM3 Eosinophils # (Auto) 0.0 TH/MM3 Basophils # (Auto) 0.0 TH/MM3 CBC Comment DIFF FINAL Differential Comment Prothrombin Time 10.0 SEC Prothromb Time International Ratio 1.0 RATIO Activated Partial Thromboplast Time 21.2 SEC Blood Urea Nitrogen 27 MG/DL Creatinine 1.33 MG/DL Random Glucose 123 MG/DL Total Protein 8.1 GM/DL Albumin 4.8 GM/DL Calcium Level 9.4 MG/DL Magnesium Level 2.2 MG/DL Alkaline Phosphatase 68 U/L Aspartate Amino Transf (AST/SGOT) 34 U/L Alanine Aminotransferase (ALT/SGPT) 66 U/L Total Bilirubin 0.5 MG/DL Sodium Level 135 MEQ/L Potassium Level 3.7 MEQ/L Chloride Level 102 MEQ/L Carbon Dioxide Level 21.2 MEQ/L Anion Gap 12 MEQ/L Estimat Glomerular Filtration Rate 56 ML/MIN Total Creatine Kinase 314 U/L 277 U/L 301 U/L Creatine Kinase MB 2.5 NG/ML 2.3 NG/ML 2.2 NG/ML Creatine Kinase MB % 0.8 % Troponin I LESS THAN 0.02 NG/ML LESS THAN 0.02 NG/ML LESS THAN 0.02 NG/ML Lipase 422 U/L Thyroid Stimulating Hormone 3rd Gen 1.540 uIU/ML Imaging Last 24 hours Impressions Chest X-Ray 11/13/172041 Signed Impressions: Service Date/Time: October 20:45 - CONCLUSION: No acute disease. Ernst Dubose Jr., MD Assessment and Plan Problem List: (1) Chest pain ICD Codes: R07.9 - Chest pain, unspecified Status: Acute Plan: Has RO for ACS and BP down. Anxiety relieved and discussed briefly. BP medication increased and discussed OK to DC [facility] (2) Anxiety ICD Codes: F41.9 - Anxiety disorder, unspecified Status: Acute (3) Hypertension ICD Codes: I10 - Essential (primary) hypertension Status: Acute Problem Qualifiers (1) Chest pain: Qualified Codes: R07.9 - Chest pain, unspecified Maxi Davis MD Nov 14, 2017 12:47
[2017-11-14] MEDS ORDERED: HYDROCHLOROTHIAZIDE 12.5 MG CAP PO SCH (13:00)
[2017-11-14] MEDS ORDERED: ASPIRIN 325 MG TAB PO SCH (13:00)
[2017-11-14] MEDS ORDERED: LISINOPRIL 10 MG TAB PO SCH (13:00)
== END 2017-11-14 16:38 | disposition home or self-care (01) ==
LOC: NEPC 19:09 → NEDA 23:04 → NEDH 11-14 03:04 → NEPHCDU 11-14 12:01
PROVIDERS: ADMIT Internal Medicine Interventional Cardiology; ATTEND Internal Medicine Interventional Cardiology
DX: R07.9 Chest pain, unspecified (principal); I10 Essential (primary) hypertension; F41.9 Anxiety disorder, unspecified; J45.909 Unspecified asthma, uncomplicated; M79.7 Fibromyalgia; M54.9 Dorsalgia, unspecified; M54.2 Cervicalgia; G89.29 Other chronic pain; F12.90 Cannabis use, unspecified, uncomplicated; Z82.49 Family history of ischemic heart disease and other diseases of the circulatory system
CPT/HCPCS: 71045; 80053; 82550; 82552; 83690; 83735; 84443; 84484; 85025; 85610; 85730; 93005; 99285; G0378

== ENCOUNTER 2018-06-19 10:25 | Observation (INO) ==
[2018-06-19] MEDS ORDERED: Aspirin 325 MG Tablet PO ONE (10:42)
[2018-06-19] MEDS ORDERED: LORazepam 0.5 MG Tablet PO ONE (10:45)
--- NOTE | 2018-06-19 10:45 | ED ---
HPI General Chief Complaint: Chest Pain Stated Complaint: Chest pain through arm Time Seen by Provider: 06/19/18 10:41 Source: patient Mode of arrival: ambulatory Limitations: no limitations History of Present Illness HPI narrative: 57-year-old male patient with history of hypertension, anxiety attacks, C-spine fusion, presents to the ER today because of a left-sided chest pain and shoulder pain with radiation down the left arm that he currently rates as a 10 out of 10, but he comes in waves. He does not know of any exacerbating or alleviating factors. He denies any shortness of breath or any other symptoms. He states that this is different than previous chest pains he has had. Complete Quality Measures for STEMI Alert Patients Related Data Allergies Allergy/AdvReac Type Severity Reaction Status Date / Time No Known Allergies Allergy Unknown Uncoded 11/14/17 12:10 Review of Systems ROS: all other systems reviewed are negative PMFSH History History Provided By: Patient Medical History Medical History Anxiety (Acute) HTN (hypertension) (Acute) Surgical History Surgical History S/P cervical spinal fusion (Acute) Social History Social History Substance History: Active Abuse Second Hand Smoke Exposure: No Smoking Status: Never smoker How Often Do You Have a Drink Containing Alcohol: Never Recent Travel in [place] within the Last 8 Weeks: No Recent Out of Country Travel within the Last 8 Weeks: No Exam Narrative Exam Narrative: GENERAL: Well-developed middle-aged male patient currently in mild distress. Awake and oriented 3. SKIN: Focused skin assessment warm/dry. HEAD: Atraumatic. Normocephalic. EYES: Pupils equal and round. No scleral icterus. No injection or drainage. ENT: No nasal bleeding or discharge. Mucous membranes pink and moist. NECK: Trachea midline. No JVD. Supple. CARDIOVASCULAR: Regular rate and rhythm. No murmur appreciated. Pulses are present and equal bilaterally. RESPIRATORY: No accessory muscle use. Clear to auscultation. Breath sounds equal bilaterally. GASTROINTESTINAL: Abdomen soft, non-tender, nondistended. Hepatic and splenic margins not palpable. MUSCULOSKELETAL: No obvious deformities. No clubbing. No cyanosis. No edema. NEUROLOGICAL: Awake and alert. No obvious cranial nerve deficits. Motor grossly within normal limits. Normal speech. PSYCHIATRIC: Mildly anxious mood and affect; insight and judgment normal. Course Initial Documented Vital Signs Temperature 97.8 F 06/19/18 10:28 Pulse Rate 89 06/19/18 10:28 Respiratory Rate 20 06/19/18 10:28 Blood Pressure 148/91 H 06/19/18 10:28 Pulse Oximetry 99 06/19/18 10:28 Last Documented Vital Signs Temperature 97.8 F 06/19/18 10:28 Pulse Rate 78 06/19/18 11:41 Respiratory Rate 18 06/19/18 11:41 Blood Pressure 131/63 06/19/18 11:41 Pulse Oximetry 98 06/19/18 11:41 Medical Decision Making MDM Narrative Medical decision making narrative: EKG did not show any signs of acute changes. Lab work was fairly unremarkable. Cardiac enzymes are negative. Chest x-ray was unremarkable. Patient is fairly anxious and had requested nausea medication and anxiety medication. Vital signs are stable in the ER. At this point, my plan would be to admit him for further evaluation in the chest pain center. Medical Screen Exam Complete: Yes Emergency Medical Condition: Yes Differential Diagnosis Differential Diagnosis: Anxiety attack versus dysrhythmias versus ACS Lab Data Lab results reviewed: Yes I reviewed the patient's lab results. Result diagrams: 06/19/18 10:54 06/19/18 10:54 Lab Results 06/19/18 06/19/18 06/19/18 Range/Units 10:54 10:54 10:54 WBC 6.4 (4.0-11.0) th/mm3 RBC 5.14 (4.50-5.90) mil/mm3 Hgb 16.5 (13.0-17.0) gm/dL Hct 47.3 (39.0-51.0) % MCV 92.1 (80.0-100.0) fL MCH 32.0 (27.0-34.0) pg MCHC 34.8 (32.0-36.0) % RDW 13.4 (11.6-17.2) % Plt Count 177 (150-450) th/mm3 MPV 10.5 (7.0-11.0) fL Neut % (Auto) 57.9 (16.0-70.0) % Lymph % (Auto) 26.6 (9.0-44.0) % [place] % (Auto) 11.2 H (0.0-8.0) % Eos % (Auto) 3.2 (0.0-4.0) % Baso % (Auto) 1.1 (0.0-2.0) % Neut # (Auto) 3.7 (1.8-7.7) th/mm3 Lymph # (Auto) 1.7 (1.0-4.8) th/mm3 [place]aver # (Auto) 0.7 (0.0-0.9) th/mm3 Eos # (Auto) 0.2 (0.0-0.4) th/mm3 Baso # (Auto) 0.1 (0.0-0.2) th/mm3 WBC Differential . Differential Comment Auto diff final PT 10.7 (9.8-11.6) sec INR 1.1 Ratio APTT 24.7 (24.3-30.1) sec Sodium 138 (136-145) meq/L Potassium 3.6 (3.5-5.1) meq/L Chloride 102 (98-107) meq/L Carbon Dioxide 26.1 (21.0-32.0) meq/L Anion Gap 10 (5-15) meq/L BUN 17 (7-18) mg/dL Creatinine 1.36 H (0.60-1.30) mg/dL Estimated GFR 54 L (>89) mL/min Random Glucose 97 (74-106) mg/dL Calcium 9.0 (8.5-10.1) mg/dL Total Bilirubin 1.0 (0.2-1.0) mg/dL AST 36 (15-37) U/L ALT 37 (12-78) U/L Alkaline Phosphatase 54 (45-117) U/L Troponin I Less than 0.02 L (0.02-0.05) ng/mL Total Protein 7.5 (6.4-8.2) g/dL Albumin 4.6 (3.4-5.0) g/dL Imaging Data Attestation: I personally reviewed and interpreted this imaging study as follows : Radiologist's impression: Chest X-Ray 06/19/18 10:42 CONCLUSION: 1. No acute cardiopulmonary disease. ECG Data Attestation: I personally reviewed and interpreted this ECG as follows: Interpretation: EKG shows normal sinus rhythm at a rate of 71 bpm. No signs of acute ST elevations or depressions. Discharge Plan Discharge Disposition Patient Disposition: 30 Still Patient Discharge Condition Condition: Stable Discharge Details Anticipated Discharge Date: 06/19/18 Diagnosis: Chest pain Physicians Team ED Provider: Twan Ly Primary Care Provider: [facility] Discharge Instructions Patient Printed Instructions: Chest Pain (ED) Discharge Interventions Interventions: Vital Signs Last Done: 06/19/18 10:31 Status ED Status: With Doctor
--- NOTE | 2018-06-19 11:01 | XR ---
EXAM DATE: 06/19/2018 10:59 AM EDT AGE/SEX: 57 years / Male INDICATIONS: Chest pain. CLINICAL DATA: This is the patient's initial encounter. Patient reports that signs and symptoms have been present for 1 day and indicates a pain score of 7/10. MEDICAL/SURGICAL HISTORY: . Hypertension. Cardiac disorders, fibromyalgia . . Abdominal surger y. COMPARISON: [facility] [place], CHEST SINGLE AP, 11/13/2017. . FINDINGS: A single AP view of the chest demonstrates the lungs to be symmetrically aerated without evidence of mass, infiltrate or effusion. The cardiomediastinal contours are unremarkable. Osseous structures a re intact. CONCLUSION: 1. No acute cardiopulmonary disease. Electronically signed by: Roman Irvin MD 06/19/2018 11:00 AM EDT
[2018-06-19 11:37] LABS: Baso # (Auto) 0.1 th/mm3 (0.0-0.2); Baso % (Auto) 1.1 % (0.0-2.0); Eos # (Auto) 0.2 th/mm3 (0.0-0.4); Eos % (Auto) 3.2 % (0.0-4.0); Hematocrit 47.3 % (39.0-51.0); Hemoglobin 16.5 gm/dL (13.0-17.0); Lymph # (Auto) 1.7 th/mm3 (1.0-4.8); Lymph % (Auto) 26.6 % (9.0-44.0); Mean Corpuscular HGB Conc 34.8 % (32.0-36.0); Mean Corpuscular Volume 92.1 fL (80.0-100.0); Mean Platelet Volume 10.5 fL (7.0-11.0); Mono # (Auto) 0.7 th/mm3 (0.0-0.9); Mono % (Auto) 11.2 % (0.0-8.0); Neut # (Auto) 3.7 th/mm3 (1.8-7.7); Neut % (Auto) 57.9 % (16.0-70.0); Platelet Count 177 th/mm3 (150-450); Red Blood Count 5.14 mil/mm3 (4.50-5.90); Red Cell Distribution Width 13.4 % (11.6-17.2); White Blood Count 6.4 th/mm3 (4.0-11.0)
[2018-06-19 11:48] LABS: Activated Partial Thrombo Time 24.7 sec (24.3-30.1); INR 1.1 Ratio; Prothrombin Time 10.7 sec (9.8-11.6)
[2018-06-19 11:53] LABS: Albumin 4.6 g/dL (3.4-5.0); Anion Gap 10 meq/L (5-15); Aspartate Aminotransferase 36 U/L (15-37); Blood Urea Nitrogen 17 mg/dL (7-18); Carbon Dioxide 26.1 meq/L (21.0-32.0); Chloride 102 meq/L (98-107); Glomerular Filtration Rate 54 mL/min (>89); Glucose,Random 97 mg/dL (74-106); Sodium 138 meq/L (136-145)
[2018-06-19 11:55] LABS: Potassium 3.6 meq/L (3.5-5.1)
[2018-06-19 11:57] LABS: Alanine Aminotransferase 37 U/L (12-78); Alkaline Phosphatase 54 U/L (45-117); Total Protein 7.5 g/dL (6.4-8.2)
[2018-06-19] MEDS ORDERED: Acetaminophen 500 MG Tablet PO PRN (13:17)
--- NOTE | 2018-06-19 14:10 | P.HPCA ---
History of Present Illness Primary Care Physician: Physician [facility] Chief Complaint: Chest pain History of Present Illness: 57-year-old male with history of hypertension and anxiety presents the emergency room for further evaluation of left shoulder and left anterior chest pain. Onset upon awakening 8 AM. Location left shoulder, left posterior side of neck, and left upper arm. Characteristic severe "muscle cramp." Pain level 8 /10. After 1.5 hours discomfort radiated to left anterior chest. Associated symptoms included nausea and diaphoresis. Denies dyspnea. Duration constant, currently "much improved." Reports left arm currently feels heavy. Endorses similar pain in the past although not as severe. Currently discomfort reported to be a "mild ache." No particular position or movement made pain better or worse. Reports "I just didn't move my arm." He called [facility] who directed him to ER for further evaluation. Family history noncontributory for early onset cardiovascular disease. No known diabetes or hypertension. Lifelong non-smoker. No recent cardiac testing. No recent illness, fever, or injury. Endorses current situational stresses recently diagnosed with breast cancer and is awaiting surgery. Home medications include lisinopril and HCTZ doses unknown at present time and not updated in home rec. Past cardiac testing Cardiac catheterization reported to be normal at age 43. Chemical stress test 10 years ago and exercise stress test 5 years ago both reported to be normal. - Diagnosis (1) Chest pain, atypical (2) Mild renal insufficiency (3) Hypertension Review of Systems All other systems reviewed negative except as stated in HPI [facility] - History History Provided By: Patient - Medical History Medical History: Medical History (Last Reviewed 06/19/18 @ 15:55 by YOVANNY Metzger) Anxiety HTN (hypertension) - Surgical History Surgical History: Surgical History (Last Reviewed 06/19/18 @ 15:55 by YOVANNY Metzger) S/P cervical spinal fusion - Family History Family History: Family History (Last Updated 06/19/18 @ 15:58 by YOVANNY Metzger) Father Type 2 diabetes mellitus FH: CABG (coronary artery bypass surgery) Mother Type 2 diabetes mellitus Pacemaker Brother Coronary artery disease - Tobacco History Second Hand Smoke Exposure: No Tobacco Use In Past 30 Days: No Smoking Status: Never smoker - Alcohol History How Often Do You Have a Drink Containing Alcohol: Never - Substance Use History Substance History: Active Abuse - Substance Use Type Marijuana Status: Active Route Used: Inhalation (smokes marijuana for pain relied) Frequency: daily - Travel History Recent Travel in the [place] Within the Last 8 Weeks: No Recent Travel Out of the Country Within the Last 8 Weeks: No - Immunization History Tetanus Immunization: >5 Years Hx Influenza Vaccine This Season: No Medications and Allergies Active Medications: Active Medications Acetaminophen (Tylenol) 500 mg PO Q4H PRN PRN Reason: HEADACHE Nitroglycerin (Nitrostat Sl) 0.4 mg SL Q5M PRN PRN Reason: CHEST PAIN Ondansetron HCl (Zofran Inj) 4 mg IV.PUSH Q6H PRN PRN Reason: NAUSEA Sodium Chloride (Ns Flush) 2 ml IV.FLUSH UNSCH PRN PRN Reason: FLUSH AFTER USING IV ACCESS Sodium Chloride (Ns Flush) 2 ml IV.FLUSH BID JOELLE Sodium Chloride (Ns Flush) 2 ml IV.FLUSH PRN PRN PRN Reason: FLUSH AFTER USING IV ACCESS Allergies Allergy/AdvReac Type Severity Reaction Status Date / Time No Known Allergies Allergy Unknown Uncoded 11/14/17 12:10 Exam Vital signs: Vital Signs 06/19/18 10:28 06/19/18 10:31 06/19/18 11:41 Temperature 97.8 F Pulse Rate 89 80 78 Respiratory Rate 20 18 18 Blood Pressure 148/91 H 139/84 131/63 Pulse Oximetry 99 100 98 06/19/18 12:57 Temperature Pulse Rate 78 Respiratory Rate 18 Blood Pressure 123/86 Pulse Oximetry 99 Intake & Output 06/18/18 06/19/18 06/19/18 18:59 06:59 18:59 Weight 87.997 kg Narrative: GENERAL: Alert WN, WD, NAD, pleasant, male who appears older than stated age HEAD: NC, AT EYES: Sclera clear, conjunctiva without injection, pupils equal and round ENT: Mucous membranes pink and moist, no nasal discharge or bleeding NECK: Supple, no masses, trachea midline CV: RRR, without murmur, rub, gallop, no JVD. No carotid bruits. Chest wall nontender with palpation. RESP: Clear lungs throughout bilateral, no crackles, wheeze, rhonchi, symmetrical chest rise, nonlabored, able to speak in full sentences ABD: Soft, NT, ND, no masses, positive bowel tones EXT: Pulses +2x4, no dependent edema MS: Normal tone x4 extremities, no obvious deformities, full range of motion, left scapula pain reproduced with palpation, left scapula and left shoulder mildly edematous. NEURO: CN II through CN XII grossly intact, motor strength 5/5, gait WNL PSYCH: A+O x3, pleasant affect, mildly anxious, appropriate speech, mood, insight and judgment SKIN: Normal turgor, normal texture, no lesions, no rashes, brisk cap refill, even hair distribution Results 06/19/18 10:54 06/19/18 10:54 Cardiac Enzymes 06/19/18 Range/Units 10:54 AST 36 (15-37) U/L Troponin I Less than 0.02 L (0.02-0.05) ng/mL Coagulation 06/19/18 Range/Units 10:54 PT 10.7 (9.8-11.6) sec APTT 24.7 (24.3-30.1) sec CBC 06/19/18 Range/Units 10:54 WBC 6.4 (4.0-11.0) th/mm3 RBC 5.14 (4.50-5.90) mil/mm3 Hgb 16.5 (13.0-17.0) gm/dL Hct 47.3 (39.0-51.0) % Plt Count 177 (150-450) th/mm3 Neut # (Auto) 3.7 (1.8-7.7) th/mm3 Lymph # (Auto) 1.7 (1.0-4.8) th/mm3 [place] # (Auto) 0.7 (0.0-0.9) th/mm3 Eos # (Auto) 0.2 (0.0-0.4) th/mm3 Baso # (Auto) 0.1 (0.0-0.2) th/mm3 Comprehensive Metabolic Panel 06/19/18 Range/Units 10:54 Sodium 138 (136-145) meq/L Potassium 3.6 (3.5-5.1) meq/L Chloride 102 (98-107) meq/L Carbon Dioxide 26.1 (21.0-32.0) meq/L BUN 17 (7-18) mg/dL Creatinine 1.36 H (0.60-1.30) mg/dL Calcium 9.0 (8.5-10.1) mg/dL AST 36 (15-37) U/L ALT 37 (12-78) U/L Alkaline Phosphatase 54 (45-117) U/L Total Protein 7.5 (6.4-8.2) g/dL Albumin 4.6 (3.4-5.0) g/dL Intake and Output 06/18/18 06/19/18 06/19/18 22:59 06:59 14:59 Other: Weight 87.997 kg Patient Weight 06/20/18 06:59 Weight 87.997 kg EKG interpretations - EKG EKG results cardiology: sinus rhythm (NSR, left axis, no st t segment changes), normal QRS Caprini VTE Risk Assessment Caprini VTE Risk Assessment: No/Low Risk (score <= 1) Caprini Risk Assessment Model: Point Value = 1 Point Value = 2 Point Value = 3 Point Value = 5 Age 41-60 Minor surgery BMI > 25 kg/m2 Swollen legs Varicose veins or History of unexplained or recurrent spontaneous Oral contraceptives or hormone replacement Sepsis (< 1 month) Serious lung disease, including pneumonia (< 1 month) Abnormal pulmonary function Acute myocardial infarction Congestive heart failure (< 1 month) History of inflammatory bowel disease Medical patient at bed rest Age 61-74 Arthroscopic surgery Major open surgery (> 45 min) Laparoscopic surgery (> 45 min) Malignancy Confined to bed (> 72 hours) Immobilizing plaster cast Central venous access Age >= 75 History of VTE Family history of VTE Factor V Leiden Prothrombin [id number] Lupus anticoagulant Anticardiolipin antibodies Elevated serum homocysteine Heparin-induced thrombocytopenia Other congenital or acquired thrombophilia Stroke (< 1 month) Elective arthroplasty Hip, pelvis, or leg fracture Acute spinal cord injury (< 1 month) Prophylaxis Regimen: Total Risk Factor Score Risk Level Prophylaxis Regimen 0-1 Low Early ambulation 2 Moderate Order ONE of the following: *Sequential Compression Device (SCD) *Heparin 5000 units SQ BID 3-4 Higher Order ONE of the following medications: *Heparin 5000 units SQ TID *Enoxaparin/Lovenox 40 mg SQ daily (WT < 150 kg, CrCl > 30 mL/min) *Enoxaparin/Lovenox 30 mg SQ daily (WT < 150 kg, CrCl > 10-29 mL/min) *Enoxaparin/Lovenox 30 mg SQ BID (WT < 150 kg, CrCl > 30 mL/min) AND/OR *Sequential Compression Device (SCD) 5 or more Highest Order ONE of the following medications: *Heparin 5000 units SQ TID (Preferred with Epidurals) *Enoxaparin/Lovenox 40 mg SQ daily (WT < 150 kg, CrCl > 30 mL/min) *Enoxaparin/Lovenox 30 mg SQ daily (WT < 150 kg, CrCl > 10-29 mL/min) *Enoxaparin/Lovenox 30 mg SQ BID (WT < 150 kg, CrCl > 30 mL/min) AND *Sequential Compression Device (SCD) Assessment and Plan - Assessment (1) Chest pain, atypical Code(s): R07.89 - Other chest pain Status: Acute Plan: Admitted chest pain center. Continue ruling out ACS. Will be seen evaluated by Dr. Mary Jo Rojo. Likely will proceed with exercise stress testing later this evening ruled out. (2) Mild renal insufficiency Code(s): N28.9 - Disorder of kidney and ureter, unspecified Status: Acute Plan: Made aware of mild renal insufficiency with creatinine level of 1.36. Follow- up with primary care provider. (3) Hypertension Code(s): I10 - Essential (primary) hypertension Status: Chronic Plan: Continue lisinopril and hydrochlorothiazide once updated in EMR. Continue to monitor. Encouraged increasing daily activity. (3) Hypertension Qualifiers: Hypertension type: unspecified Qualified Code(s): I10 - Essential (primary) hypertension
[2018-06-19] MEDS ORDERED: Ketorolac Inj 30 MG/ML (IVP) Vial IV.PUSH ONE (15:00)
--- NOTE | 2018-06-19 15:09 | ECG ---
Date Performed: 06/19/2018 Time Performed: 10:39:55 PTAGE: 57 years EKG: Sinus rhythm POSSIBLE RIGHT VENTRICULAR CONDUCTION DELAY MINIMAL VOLTAGE CRITERIA FOR LVH, CONSIDER NORMAL VARIAN T BORDERLINE ECG Since PREVIOUS TRACING , no significant change noted PREVIOUS TRACIN11/14/2017 02.15 DOCTOR: Mary Jo Rojo Interpretating Date/Time 06/19/2018 15:09:29
[2018-06-19 15:13] LABS: Creatine Kinase 387 U/L (39-308)
[2018-06-19 15:26] LABS: CKMB Percent 0.6 % (0.0-4.0); Creatine Kinase MB 2.4 ng/mL (0.5-3.6)
[2018-06-19 18:12] LABS: Creatine Kinase 276 U/L (39-308)
--- NOTE | 2018-06-20 15:48 | ECG ---
Date Performed: 06/19/2018 Time Performed: 17:01:30 PTAGE: 57 years EKG: Sinus rhythm MINIMAL VOLTAGE CRITERIA FOR LVH, CONSIDER NORMAL VARIANT BORDERLINE ECG No significant change PREVIOUS TRACING : 06/19/2018 17.01 DOCTOR: Maxi Davis Interpretating Date/Time 06/24/2018 08:37:32
--- NOTE | 2018-06-20 15:49 | ECG ---
Date Performed: 06/19/2018 Time Performed: 14:24:42 PTAGE: 57 years EKG: Sinus rhythm LOW QRS VOLTAGE IN PRECORDIAL LEADS MINIMAL VOLTAGE CRITERIA FOR LVH, CONSIDER NORMAL VARIANT BORDER LINE ECG No significant change PREVIOUS TRACING : 06/19/2018 10.39 DOCTOR: Maxi Davis Interpretating Date/Time 06/20/2018 15:48:21
--- NOTE | 2018-06-20 15:58 | TR ---
Date Performed: 06/19/2018 Time Performed: 18:41:23 DOCTOR: Maxi Davis DRUG LIST: CLINICAL HISTORY: REASON FOR TEST: Chest pain REASON FOR ENDING: OBSERVATION: CONCLUSION: Emigdio protocol completed. Stopped sec to exceeding target heart rate and leg fatigue . Maximum RG=970 Max HR Achieved=96.0% Maximum SP=811/94 Total Exercise Time=9:01. No reprod chest di scom[place]. Rare PVC. No st t segment changes to sugg ischemia. Great exercise tolerance. Recovery quic k and unremarkable. COMMENTS:
== END 2018-06-19 20:06 | disposition home or self-care (01) ==
LOC: NEPE 10:25 → NEDA 10:25 → NEPFCDU 11:00
PROVIDERS: ADMIT Internal Medicine Interventional Cardiology; ATTEND Internal Medicine Interventional Cardiology
DX: R07.9 Chest pain, unspecified; I10 Essential (primary) hypertension; M79.7 Fibromyalgia; F41.9 Anxiety disorder, unspecified